=== PATIENT | female | born 1990 | race Caucasian/White ===

== ENCOUNTER 2017-04-09 22:44 | Emergency (ER) | END 2017-04-10 03:24 | disposition home or self-care (01) ==

== ENCOUNTER 2017-12-31 16:46 | Emergency (ER) | END 2017-12-31 21:42 | disposition home or self-care (01) ==

== ENCOUNTER 2018-01-01 22:39 | Emergency (ER) | END 2018-01-02 01:31 | disposition home or self-care (01) ==

== ENCOUNTER 2018-01-08 10:39 | Inpatient (IN) | END 2018-01-09 16:00 | disposition home or self-care (01) | DRG 817 ==

== ENCOUNTER 2018-01-31 14:03 | Emergency (ER) | END 2018-01-31 16:28 | disposition home or self-care (01) ==

== ENCOUNTER 2018-06-11 20:22 | Emergency (ER) | payer MEDICAID, OTHER ==
[~2018-06-11] VITALS: Ht 160 cm; Wt 77.3 kg
[~2018-06-11 20:22] MED LIST: IBUP-1542 PO; MAG-19 PO; ONDA4TAB14 PO
[2018-06-11 20:31] VITALS: Ht 160 cm; Wt 77.3 kg
[2018-06-11] MEDS ORDERED: ACETAMINOPHEN 325 MG TAB PO STA (21:53)
[2018-06-11] MEDS ORDERED: SOD CHLORIDE 0.9% 1,000 ML IV STA (21:53)
--- NOTE | 2018-06-12 00:13 | ERD ---
ER Documentation Chief Complaint Chief Complaint vaginal bleeding x 1 hour, states 5 weeks HPI This is a 28-year-old female who presents to the emergency room with complaint of vaginal bleeding. x 5 weeks. States approximately 1 hour ago began with bright red blood she has not had to change sanitary pad. States that 5 days ago she was at her OB due to brown discharge with cramping. At that time OB told her that any bright red blood was a concern and to come to the ER. No fevers, no abdominal pain, no dysuria, no chest pain, no shortness of breath. History significant for ruptured ectopic 5 months ago. A1 L1 ROS All systems reviewed and are negative except as per history of present illness. Medications Home Meds Active Scripts Ondansetron (Ondansetron Odt) 4 Mg Tab.rapdis, 4 MG PO Q6H PRN for NAUSEA AND/OR VOMITING, #20 TAB Prov:TANK HANSON 01/31/18 Magaldrate/Simethicone* (Mylanta*) 355 Ml Susp, 30 ML PO QID PRN for GASTROINTESTINAL UPSET, #1 BOTTLE Prov:TANK HANSON 01/31/18 Ibuprofen* (Motrin*) 600 Mg Tab, 600 MG PO Q6, #30 TAB Prov:DARIANA,YONI 04/10/17 Allergies Allergies: Coded Allergies: No Known Drug Allergy (Verified Allergy, Unknown, 02/15/12) PMhx/Soc History of Surgery: Yes (D AND C) Anesthesia Reaction: No Hx Neurological Disorder: No Hx Respiratory Disorders: No Hx Cardiac Disorders: No Hx Psychiatric Problems: No Hx Miscellaneous Medical Probl: No Hx Alcohol Use: Yes Hx Substance Use: No Hx Tobacco Use: No Smoking Status: Never smoker FmHx Family History: No diabetes, No coronary disease, No other Physical Exam Vitals Vital Signs Date Temp Pulse Resp B/P (MAP) Pulse Ox O2 O2 Flow FiO2 Time Delivery Rate 06/12/18 98.3 75 18 115/71 100 Room Air 02:36 (86) 06/11/18 99.0 85 18 124/72 99 20:31 (89) Physical Exam Const: No acute distress Head: Atraumatic Eyes: Normal Conjunctiva ENT: Normal External Ears, Nose and Mouth. Neck: Full range of motion. No meningismus. Resp: Clear to auscultation bilaterally Cardio: Regular rate and rhythm, no murmurs Abd: Soft, non tender, non distended. Normal bowel sounds Skin: No petechiae or rashes Back: No midline or flank tenderness Ext: No cyanosis, or edema Neur: Awake and alert Psych: Normal Mood and Affect Result Diagram: 06/11/182200 Results 24 hrs Laboratory Tests Test 06/11/18 22:01 White Blood Count 8.2 10^3/ul Red Blood Count 4.25 10^6/ul Hemoglobin 12.7 g/dl Hematocrit 37.7 % Mean Corpuscular Volume 88.7 fl Mean Corpuscular Hemoglobin 29.9 pg Mean Corpuscular Hemoglobin Concent 33.7 g/dl Red Cell Distribution Width 13.2 % Platelet Count 198 10^3/UL Mean Platelet Volume 11.0 fl Immature Granulocytes % 0.500 % Neutrophils % 57.3 % Lymphocytes % 31.9 % Monocytes % 8.8 % Eosinophils % 1.3 % Basophils % 0.2 % Nucleated Red Blood Cells % 0.0 /100WBC Immature Granulocytes # 0.040 10^3/ul Neutrophils # 4.7 10^3/ul Lymphocytes # 2.6 10^3/ul Monocytes # 0.7 10^3/ul Eosinophils # 0.1 10^3/ul Basophils # 0.0 10^3/ul Nucleated Red Blood Cells # 0.0 10^3/ul Urine Color YELLOW Urine Clarity SLIGHTLY CLOUDY Urine pH 6.0 Urine Specific [place] 1.020 Urine Ketones NEGATIVE mg/dL Urine Nitrite NEGATIVE mg/dL Urine Bilirubin NEGATIVE mg/dL Urine Urobilinogen NEGATIVE mg/dL Urine Leukocyte Esterase NEGATIVE [place]/ul Urine Microscopic RBC 11 /HPF Urine Microscopic WBC 8 /HPF Urine Squamous Epithelial Cells FEW /HPF Urine Bacteria FEW /HPF Urine Mucus FEW /HPF Urine Hemoglobin 3+ mg/dL Urine Glucose NEGATIVE mg/dL Urine Total Protein NEGATIVE mg/dl Beta HCG, Quantitative 6.9 mIU/ml Current Medications Medications Dose Sig/Lola Start Time Status Last (Trade) Ordered Route PRN Stop Time Admin Dose Reason Admin Sodium 1,000 ml @ Q1H STAT 06/11/18 DC 06/11/18 Chloride 1,000 mls/hr IV 21:53 06/11/18 21:59 22:52 650 mg ONCE STAT 06/11/18 DC 06/11/18 Acetaminophen PO 21:53 06/11/18 21:59 (Tylenol 21:55 Tab) Procedures/MDM This is a 28-year-old female who presents to the emergency room with complaint o f vaginal bleeding at 5 weeks gestation. ED COURSE: The patient was stable throughout ED course. I kept the patient and informed of laboratory and diagnostic imaging results throughout the ED course. DIAGNOSTIC IMAGING: Ultrasound Uterus: Unremarkable, the previously seen leiomyomata are not visible Endometrial cavity: No intrauterine is identified, the thickness is normal measuring 7.5 mm. Right ovary / adnexa: Ovarian size is mildly enlarged measuring 5.2 x 3.8 x 3. 1 cm caused by an ovarian cyst measuring 3 x 2.9 x 2.9 cm. There is no evidence of adnexal mass. Normal blood flow on Doppler interrogation is present. Left ovary/adnexa: Ovarian size is normal measuring to point of the 2.71 pointing cm with no evidence of ovarian or adnexal mass. Normal blood flow seen on Doppler interrogation. Read by radiologist. PROCEDURES: Vaginal Exam: Exam procedure and necessity was explained to patient. She was agreeable to exam. Patient repositioned to the edge of the bed, blankets provided for modesty in individual exam room. External genitalia without lesions, abrasions, or abnormal anatomy. Plastic speculum gently inserted into vagina, cervix visualized, Os open with dark blood visible. No foul odor, no discharge, no vaginal lesions or lacerations. MEDICATIONS GIVEN: NS 1 L, Tylenol Patient tolerated medication well with no adverse reactions. Patient reported improvement in pain. Patient's bleeding symptoms have stabilized during ED course. No evidence of symptomatic anemia, ectopic , sepsis, or surgical abdomen. Extensive discussion with family and patient that occult disease cannot be ruled out. Discussed with patient and that she has most likely experienced a miscarriage however a repeat HCG in the next 24 hours is necessary to confirm. Patient provided with all ultrasound and lab results, questions answered. Attempts to contact on-call OB via telemediq and phone failed to reach OB on- call. Dr. Ryan @ 01:40, 2:08 Dr. Vivas was off-line on [employer], unreachable via phone per L&D nurses Patient and exhausted and chose to go home and follow-up with her OB tomorrow, verbalized understanding of s/sx of worsening of condition and reasons to return to ER. Pt alert, appropriate, VSS at time of discharge. Departure Diagnosis: Primary Impression: Threatened in early Condition: Stable Patient Instructions: Possible Miscarriage (Threatened ) Referrals: [facility] Additional Instructions: Thank you very much for allowing us to participate in your care. Your health and safety is our top priority at [facility]. Call your primary care doctor TOMORROW for an appointment during the next 2-4 days and bring all the information and medications prescribed. Have prescriptions filled and follow precisely the directions on the label. If the symptoms get worse and your provider is unavailable, return to the Emergency Department immediately. ANA BARRETO NP Jun 12, 2018 00:13
[2018-06-12 02:36] VITALS: BP 115/71; PULSE 75; RESP 18
== END 2018-06-12 02:37 | disposition home or self-care (01) ==
LOC: FTE 20:22
DX: O20.0 Threatened abortion (principal); Z3A.01 Less than 8 weeks gestation of pregnancy
CPT/HCPCS: 36415; 76801; 76817; 81001; 84702; 85025; 86900; 86901; 96360; J7030; Z7502; Z7610